=== PATIENT | female | born 2000 | race African-American/Black ===

== ENCOUNTER 2020-10-05 04:59 | Emergency (ER) | payer OTHER ==
[~2020-10-05] VITALS: Ht 160 cm; Wt 93.2 kg
[2020-10-05 05:41] LABS: COVID AG,FIA SOURCE NASOPHARYNGEAL
[2020-10-05 06:06] LABS: RAPID GROUP A STREP NEGATIVE (NEGATIVE)
[2020-10-05 06:07] VITALS: BP 196/86
== END 2020-10-05 06:35 | disposition home or self-care (01) ==
LOC: EMS 05:05
DX: J02.9 Acute pharyngitis, unspecified (principal); Z20.822 Contact with and (suspected) exposure to COVID-19
CPT/HCPCS: 87426; 87430; 99283

== ENCOUNTER 2021-06-10 13:13 | Emergency (ER) | payer OTHER ==
[~2021-06-10] VITALS: Ht 162.6 cm; Wt 88.6 kg
[2021-06-10 13:28] VITALS: BP 115/63
== END 2021-06-10 14:46 | disposition home or self-care (01) ==
LOC: EMS 13:34
DX: B27.90 Infectious mononucleosis, unspecified without complication (principal)
CPT/HCPCS: 86308; 87430; 96365; 96367; 96372; 99283

== ENCOUNTER 2021-06-30 05:49 | Emergency (ER) | payer OTHER ==
[~2021-06-30] VITALS: Ht 160 cm; Wt 88.0 kg
[2021-06-30] MEDS ORDERED: SERT-158 PO (05:55)
[2021-06-30 06:05] VITALS: BP 132/82
== END 2021-06-30 06:48 | disposition home or self-care (01) ==
LOC: EMS 05:49
DX: A60.09 Herpesviral infection of other urogenital tract (principal)
CPT/HCPCS: 99283